=== PATIENT | female | born 1965 | race African-American/Black ===

== ENCOUNTER 2019-08-10 13:04 | Emergency (ER) | payer OTHER ==
[~2019-08-10] VITALS: Ht 162.6 cm; Wt 97.1 kg
[2019-08-10] MEDS ORDERED: AMLODIPINE BESYL5 MG (13:10)
== END 2019-08-10 14:42 | disposition home or self-care (01) ==
LOC: ER 13:04
DX: I16.0 Hypertensive urgency (principal); I10 Essential (primary) hypertension